=== PATIENT | female | born 1990 | race Caucasian/White ===

== ENCOUNTER 2016-09-26 23:26 | Emergency (ER) | payer OTHER ==
[~2016-09-26] VITALS: Ht 172.7 cm; Wt 98.9 kg
[~2016-09-26 23:26] MED LIST: ATIVAN0.5 MG PO; LEXAPRO10 MG PO; PAXIL20 MG PO
[2016-09-26 23:28] VITALS: BP 118/74
[2016-09-26] MEDS ORDERED: DESYREL50 MG PO (23:35)
[2016-09-26] MEDS ORDERED: WELLBUTRIN XL300 MG PO (23:35)
--- NOTE | 2016-09-26 23:41 | NUR ---
AMBULATED TO ER BED 3
--- NOTE | 2016-09-26 23:48 | NUR ---
26 Y/O F W/C/O EPIGASTRIC, AND CHEST PAIN X 3 DAYS. NO S/S OF DISTRESS NOTED AT THIS MOMENT. ON MONITOR. ER MD MADE AWARE.
[2016-09-27] MEDS ORDERED: ONDANSETRON 4 MG TAB PO ONE (02:00)
[2016-09-27] MEDS ORDERED: MORPHINE SULFATE 4 MG/ML SYR IM ONE (02:00)
--- NOTE | 2016-09-27 02:10 | NUR ---
PT ON MONITOR, VSS. C/O ABD PAIN, ZOFRAN PO AND MORPHINE IM GIVEN. PT TOLERATED WELL. WILL CONT TO MONITOR.
[2016-09-27 02:20] VITALS: BP 122/76
--- NOTE | 2016-09-27 02:20 | NUR ---
Patient discharged with v/s stable. Written and verbal after care instructions given and explained BY DR SAL. Patient alert, oriented and verbalized understanding of instructions. Ambulatory with steady gait. All questions addressed prior to discharge. ID band removed. Patient advised to follow up with PMD. Rx of TRAMADOL HCL given. Patient educated on indication of medication including possible reaction and side effects. Opportunity to ask questions provided and answered.
== END 2016-09-27 02:20 | disposition home or self-care (01) ==
LOC: MED 23:26
DX: K80.20 Calculus of gallbladder without cholecystitis without obstruction (principal); K21.9 Gastro-esophageal reflux disease without esophagitis
CPT/HCPCS: 36415; 76705; 80053; 81001; 81002; 81025; 82150; 83690; 85025; 93005; 96372; 99285; J2270; Q0092; Q0162

== ENCOUNTER 2017-03-19 00:22 | Emergency (ER) | payer OTHER ==
[~2017-03-19] VITALS: Ht 172.7 cm; Wt 90.7 kg
[~2017-03-19 00:22] MED LIST changes: +ATI.5 PO; -ATIVAN0.5 MG PO; +BUPR300T70 PO; -LEXAPRO10 MG PO; -PAXIL20 MG PO; +TRAZ-286 PO
[2017-03-19 00:25] VITALS: BP 157/99
--- NOTE | 2017-03-19 00:28 | NUR ---
Patient ambulated to bed 05.
[2017-03-19] MEDS ORDERED: PAX20 PO (00:30)
--- NOTE | 2017-03-19 00:31 | NUR ---
26/F c/o anxiety starting today. Pt states "I drove straight from work here." Pt tearful, appears calm, cooperative. Pt reports hx of anxiety. AOX4. VSS.
--- NOTE | 2017-03-19 00:34 | NUR ---
Patient being evaluated by physician at bedside.
[2017-03-19] MEDS ORDERED: LORazepam 1 MG TAB PO ONE (00:40)
--- NOTE | 2017-03-19 01:36 | NUR ---
Patient appears to be resting comfortably in bed. VSS.
--- NOTE | 2017-03-19 02:03 | NUR ---
Pt states "Miss, I feel much better. I think I'm ready to go." Dr. Parikh made aware. Dr. Parikh at bedside re-evaluating patient.
[2017-03-19 02:04] VITALS: BP 146/100
--- NOTE | 2017-03-19 02:04 | NUR ---
Patient discharged with v/s stable. Written and verbal after care instructions given and explained. Patient alert, oriented and verbalized understanding of instructions. Ambulatory with steady gait. All questions addressed prior to discharge. ID band removed. Patient advised to follow up with PMD. Rx of Ativan 1mg given. Patient educated on indication of medication including possible reaction and side effects. Opportunity to ask questions provided and answered.
== END 2017-03-19 02:04 | disposition home or self-care (01) ==
LOC: MED 00:22
DX: F41.9 Anxiety disorder, unspecified (principal); K21.9 Gastro-esophageal reflux disease without esophagitis; Z79.899 Other long term (current) drug therapy
CPT/HCPCS: 99284

== ENCOUNTER 2017-07-02 20:49 | Emergency (ER) | payer OTHER ==
[~2017-07-02] VITALS: Ht 172.7 cm; Wt 90.7 kg
[~2017-07-02 20:49] MED LIST changes: +PAX20 PO
[2017-07-02 21:03] VITALS: BP 132/87
--- NOTE | 2017-07-02 21:07 | NUR ---
TO LOBBY AMB, VS STABLE, A/W FOR BED, MARIANA NOTED
--- NOTE | 2017-07-03 00:54 | NUR ---
PATIENT LEFT WITHOUT BEING SEEN BY DR. Sandhu. NO FURTHER CARE PROVIDED FOR PATIENT.
== END 2017-07-03 00:54 | disposition left against medical advice (07) ==
LOC: MED 20:49
DX: M79.1 Myalgia (principal); R05 Cough; Z53.21 Procedure and treatment not carried out due to patient leaving prior to being seen by health care provider